=== PATIENT | male | born 1945 | race Caucasian/White ===

== ENCOUNTER → 2017-12-20 | Outpatient (CLI) | payer OTHER ==
--- NOTE | 2017-12-20 16:10 | DIAGNOSTIC IMAGING REPORT ---
CHEST 2 VIEWS ROUTINE CLINICAL HISTORY: 72 years-old Male presenting with PRE OP. TECHNIQUE: PA and lateral views of the chest were obtained. COMPARISON: None. FINDINGS: Atherosclerosis of the aortic arch. Cardiac silhouette normal in size. Prominent pericardial fat pad noted. Lungs and pleural spaces clear. Old fracture deformity of the anterior right seventh rib noted. Upper abdomen normal. IMPRESSION: 1. No acute cardiopulmonary disease. Electronically signed by: Damián Lopez M.D. 12/20/2017 4:09 PM Dictated Date/Time: 12/20/2017 4:08 PM
[2017-12-20 16:38] LABS: BASO % 0.6 %; BASO ABS # 0.04 K/uL (0-0.2); EOS % 2.7 %; EOS ABS # 0.17 K/uL (0-0.5); HEMATOCRIT 39.2 % (42-52); HEMOGLOBIN 12.9 g/dL (14.0-18.0); IG# 0.11 K/uL (0.00-0.02); LYMPH % 24.4 %; LYMPH ABS # 1.52 K/uL (1.2-3.4); MEAN CELL VOLUME 92.7 fL (80-100); MEAN CORPUSCULAR HEMOGLOBIN 30.5 pg (25-34); MEAN CORPUSCULAR HGB CONC 32.9 g/dl (32-36); MEAN PLATELET VOLUME 9.3 fL (7.4-10.4); MONO % 12.7 %; MONO ABS # 0.79 K/uL (0.11-0.59); NEUT % 57.8 %; NEUT ABS # 3.59 K/uL (1.4-6.5); PLATELET COUNT 313 K/uL (130-400); RED CELL DISTRIBUTION WIDTH CV 14.7 % (11.5-14.5); RED CELL DISTRIBUTION WIDTH SD 49.8 fL (36.4-46.3); WHITE BLOOD COUNT 6.22 K/uL (4.8-10.8)
[2017-12-20 16:46] LABS: PTT PATIENT 25.1 SECONDS (21.0-31.0)
[2017-12-20 17:09] LABS: BLOOD UREA NITROGEN 20 mg/dl (7-18); CALCIUM 8.3 mg/dl (8.5-10.1); CARBON DIOXIDE 28 mmol/L (21-32); CREATININE 1.53 mg/dl (0.60-1.40); GLUCOSE 99 mg/dl (70-99); POTASSIUM 4.1 mmol/L (3.5-5.1); SODIUM 144 mmol/L (136-145)
== END | disposition home or self-care (01) ==
LOC: C.CPL 15:29
PROVIDERS: ATTEND Orthopaedic Surgery
DX: Z01.812 Encounter for preprocedural laboratory examination (principal); Z01.810 Encounter for preprocedural cardiovascular examination; Z01.811 Encounter for preprocedural respiratory examination; I70.0 Atherosclerosis of aorta

== ENCOUNTER 2017-12-24 09:03 | Day surgery (SDC) | payer OTHER ==
[~2017-12-24] VITALS: Ht 172.7 cm; Wt 89.1 kg
[~2017-12-24 09:03] MED LIST: ADVIN25/60 INH; CALC-5 PO; CEFAZOLIN 1000MG IV PUSH 7.5 ML IV SCH; CEFAZOLIN 2000MG IV PUSH 15 ML IV SCH; CHOL1TAB42 PO; DILT-117 PO; FAMO20TA11 PO; LACTATED RINGER'S 1000ML 1,000 ML IV SCH; LISI20TA3 PO; SYN88 PO; VITACAP37 PO; VNTHFA/IN INH
[2017-12-24 09:45] VITALS: BP 120/99; PULSE 100; TEMP 36.5; O2SAT 96; Ht 172.7 cm; Wt 89.1 kg
[2017-12-24] MEDS ORDERED: EpINEphrine INJ 1MG/ML AMP 1 MG/ML AMP ONE (09:46)
[2017-12-24] MEDS ORDERED: BUPIVACAINE 0.5 % 5 MG/1 ML PF 10ML VIAL ONE ×2 (09:46→09:47)
[2017-12-24] MEDS ORDERED: DEXAMETHASONE SOD INJ 4 MG/ML VIAL ONE (09:46)
[2017-12-24] MEDS ORDERED: SODIUM CHLORIDE 0.9% INJ 10 ML VIAL ONE (09:47)
--- NOTE | 2017-12-24 10:18 | History & Physical Bridge Note ---
H&P Re-Evaluation Bridge Note: I have examined the patient, reviewed the History & Physical and in the interval since the performance of the History & Physical I have noted the following changes of clinical significance: No changes noted
--- NOTE | 2017-12-24 10:52 | History and Physical ---
History & Physical Date December 24, 2017. Chief Complaint Right shoulder pain History of Present Illness The patient is a 72 year old male with complaints of right shoulder pain for several years which has gradually worsened. no acute injuries that he can recall , but pain gradually worsening, worse with overhead activities and lifting away from his body, pain occasionally wakes him at night, no relief with rest/ice. pain worst is 8/10, now pain with ADLs. MRI showing advanced DJD AC joint as well as high grade partial tear of rotator cuff. Past Medical/Surgical History kidney stones removed left index & middle finger amputations GERD Obesity Hypertension Allergies Uncoded Allergies: PENTATHOL (Allergy, Unknown, hives, 12/23/17) Home Medications Scheduled Calcium-Magnesium W/ Vitamin D (Calcium 500), 1 TAB PO QAM Cholecalciferol (Vitamin D), 1 TAB PO QAM Diltiazem Hcl Ext Rel (Tiazac), 300 MG PO QAM Famotidine (Pepcid), 20 MG PO QAM Fluticasone Prop/Salmeterol (Advair Diskus 250/50 60 Dose), 2 PUFFS INH BID Levothyroxine Sodium (Synthroid), 1 TAB PO QAM Lisinopril (Prinivil), 20 MG PO QAM Vitamin E (E-400), 1 TAB PO QAM Scheduled PRN Albuterol Hfa (Ventolin Hfa), 2-4 PUFFS INH Q6H PRN for Shortness of Breath Physical Examination Skin: warm/dry, no rash Eyes: normal inspection, EOMI, sclerae normal ENT: normal ENT inspection, pharynx normal Head: normocephalic, atraumatic Neck: supple, no adenopathy, trachea midline Respiratory/Chest: lungs clear, normal breath sounds, no respiratory distress Cardiovascular: regular rate, rhythm, no edema, no murmur Addiitonal Comments: Right shoulder: active ROM : FFlexion 160 degrees, ABDUCTION 150 degrees, internal rotation to L5, strength 4/5 with resisted FF and ER. Positive Hawkin and Neer impingment. NVDI, Radial pulse +2. positive empty can test, negative drop arm MRI right shoulder showing Advanced DJD AC joint with near full thickness tear supraspinatus Diagnosis right shoulder AC joint DJD and rotator cuff tear Plan of Treatment after further discussion, patient would like to proceed with right shoulder arthroscopy, subacromial decompression, excision distal clavicle, rotator cuff repair at [facility]. will plan on OPPT PT starting POD #2, percocet for post-op pain management.
[2017-12-24] MEDS ORDERED: FENTANYL CITRATE INJ 50 MCG/1 ML 2 ML VIAL ONE ×3 (12:00→14:11)
[2017-12-24] MEDS ORDERED: EpINEphrine HCL INJ 1 MG/ML 1ML SYRINGE ONE (12:38)
[2017-12-24] MEDS ORDERED: SODIUM CHLORIDE 0.9% 1000ML 1,000 ML IV SCH (13:05)
[2017-12-24] MEDS ORDERED: OXYC-57 PO (13:07)
[2017-12-24] MEDS ORDERED: OXYCODONE/ACETAMINOPHEN 5-325 TAB PO PRN ×2 (13:15)
[2017-12-24] MEDS ORDERED: ONDANSETRON INJ 2 MG/ML 2 ML VIAL IV PRN ×2 (13:15→14:45)
[2017-12-24] MEDS ORDERED: PROPOFOL IV EMULSION 10 MG/ML 20 ML VIAL ONE ×2 (13:24→13:46)
[2017-12-24] MEDS ORDERED: ONDANSETRON INJ 2 MG/ML 2 ML VIAL ONE (13:24)
[2017-12-24] MEDS ORDERED: PHENYLEPHRINE 100MCG/ML 5ML SYR ONE (13:24)
[2017-12-24] MEDS ORDERED: SUCCINYLCHOLINE CHLORIDE 20 MG/ML 10 ML VIAL IV ONE (13:24)
--- NOTE | 2017-12-24 14:06 | [facility] Post Operative Brief Note ---
Immediate Operative Summary Operative Date December 24, 2017. Pre-Operative Diagnosis right shoulder acromioclavicular joint Degenerative Joint Disease and rotator cuff tear Post-Operative Diagnosis Right shoulder acromioclavicular joint Degenerative Joint Disease and rotator cuff tear Procedure(s) Performed Right Shoulder Arthroscopic Subacromial Decompression, Distal Clavicle Excision, with Rotator Cuff Repair utilizing double row repair 4.5 helical L4 0.[address] Olivas Cooker Casing Surgeon(s) Arjun Carty PA-C Estimated Blood Loss 3 cc Findings Consistent with Post-Op Diagnosis Specimens none per surgeon Drains None Anesthesia Type General Regional Complication(s) none Disposition Disposition: Recovery Room / PACU Overlapping Procedure I was present for: the critical portions of procedure. I was immediately available: during the entire case Back up surgeon: was not required during procedure
--- NOTE | 2017-12-24 14:10 | [facility] Operative Report ---
Operative Report Operative Date December 24, 2017. Pre-Operative Diagnosis right shoulder acromioclavicular joint Degenerative Joint Disease and rotator cuff tear Post-Operative Diagnosis Right shoulder acromioclavicular joint Degenerative Joint Disease and rotator cuff tear Procedure(s) Performed Right Shoulder Arthroscopic Subacromial Decompression, Distal Clavicle Excision, with Rotator Cuff Repair utilizing double row repair 4.5 helical L4 0.[address] Olivas Career Services Director Surgeon(s) Arjun Carty PA-C Estimated Blood Loss 3 cc Findings Patient presents with a full-thickness tear rotator cuff no response to conservative management with physical therapy anti-inflammatories relative rest activity modification as profound weakness to abduction weakness with supraspinatus on manual motor testing time surgery there is evidence of full- thickness cuff tear AC joint DJD impingement syndrome as verified with MRI and x -rays preoperatively. Specimens none per surgeon Drains None Anesthesia Type General Regional Complication(s) none Disposition Recovery Room / PACU Indications Patient presents with a full-thickness rotator cuff tear right shoulder failed attempts at conservative management patient is acute on chronic rotator cuff tear with profound weakness of the supinators tendon times Surgeon evidence of a 3 x 3 cm tear involving supinators tendon with retraction of the tendon the there is also to be evidence of marketed AC joint DJD with large anterior type III acromion which is all debrided. Description of Procedure After proper primary draping the right shoulder region a standard posterior shoulder or scopic portals placed on scopic examination beginning region of the glenohumeral joint revealed the biceps tendon to be intact as noted evidence of large a full-thickness tear of supraspinatus tendon with retraction of the anterior subscapularis is noted be intact labrum had some mild fraying which was debrided to stable margin subacromial space was decompressed bursectomy was performed anterior-inferior acromioplasty was performed converting a type III to type I the distal 10 mm of clavicle was excised under direct visualization socially rotator cuff after having been mobilized was repaired for repair back to bony bed of bony bed was prepared subsequently 4.5 double loaded helical was placed the rotator cuff was advanced back to the bone and repaired a second footprint anchor 4.5 he footprint anchor was used the rotator cuff repair was complete and back to bone performed a complete thorough subacromial decompression acromioplasty distal clavicle excision on particular matter debris was removed skin portals are closed with 4-0 nylon please note Arjun ALEGRIA was necessary for prepping draping traction suture management wound closure was necessary for the case I attest to the content of the Intraoperative Record and any orders documented therein. Any exceptions are noted below.
--- NOTE | 2017-12-24 14:14 | Discharge Instructions ---
Discharge Instructions Date of Service December 24, 2017. Visit Reason for Visit: Right Shoulder Impingement Syndrome, Osteoarthriti Discharge Discharge Diagnosis / Problem: right shoulder excision distal clavicle and rotator cuff repair Discharge Goals Goal(s): Decrease discomfort, Improve function, Increase independence Activity Recommendations Activity Limitations: as noted below Anesthesia . Post Anesthesia Instructions: If you have had General Anesthesia or IV Sedation: * Do not drive today. * Resume driving when surgeon permits. * Do not make important decisions or sign legal documents today. * Call surgeon for: 1. Temperature elevations greater than 101 degrees F. 2. Uncontrollable pain. 3. Excessive bleeding. 4. Persistent nausea and vomiting. 5. Medication intolerance (nausea, vomiting or rash). * For nausea and vomiting use only clear liquids such as: tea, soda, bouillon until nausea subsides, then gradually increase diet as tolerated. * If you have any concerns or questions, call your surgeon's office. If physician is unavailable and it is an emergency, call 911 or go to the nearest emergency room. . Instructions / Follow-Up Instructions / [place] [facility] [place]: ROTATOR CUFF REPAIR SELF CARE INSTRUCTIONS A. You are permitted to loosen your sling/immobilizer to move your elbow, wrist , and hand to prevent stiffness. You should use your well arm (good arm) to assist the operated extremity when trying to raise the arm away from the body, hygiene purposes. Do NOT actively try to use/engage your shoulder muscles in operative arm at this time. You should NOT do overhead activity, lifting, or attempt to reach behind your back. B. You may/may not be instructed to start Physical Therapy upon discharge depending upon the size and difficulty of the repair. You will be provided a prescription for therapy with specific restrictions, if needed, at time of discharge. C. At 48 hours post-operatively, you may change your dressing. (Leave white steri-strips intact if present). Use band-aids and change daily. You are allowed to shower at this time and get the incision area wet, but DO NOT soak or submerge incision area in water. (No baths, swimming pools, hot tubs) D. Do NOT apply soap or any ointment/lotions directly over incision. E. You may use ice as needed to operative shoulder SPECIAL CARE INSTRUCTIONS: VERY IMPORTANT TO READ AND REVIEW A. There are a few signs you need to watch for after you are home. Call [facility] at [phone] if you experience any of the following: a. Increased severe shoulder pain. Some pain is expected especially when you exercise b. Increased swelling in your shoulder or arm; pain or swelling in either upper extremity. (Note: swelling and stiffness is normal and expected for several weeks post op, depending on type of shoulder surgery you had). c. Any fluid or drainage from the incision; redness of the incision. d. Shortness of breath or chest pain. B. Please call [facility] at [phone] if you have any questions or concerns about your operation or recovery. C. Call your physician if: a. Temperature is greater than 101 degrees (F). b. Pain is not relieved by prescribed pain medications. c. Increase drainage or redness from incision. d. Unanswered questions or concerns. D. Pain Medication: a. You will be prescribed pain medication upon discharge that should last till your first post-operative appointment. b. If you experience nausea and/or skin rash, discontinue this medication and contact our office for an alternative medication. c. Caution- narcotic pain medication can cause constipation. FOLLOW UP VISIT: Please call [facility] at [phone] to schedule a follow up appointment 10-14 days from your surgery date. Diet Recommendations Recommended Home Diet: resume previous diet Procedures Procedures Performed: Right Shoulder Arthroscopic Subacromial Decompression, Distal Clavicle Excision, with Rotator Cuff Repair utilizing double row repair 4.5 helical L4 0.5 footprint anchor Pending Studies Studies pending at discharge: no Medical Emergencies . Who to Call and When: Medical Emergencies: If at any time you feel your situation is an emergency, please call 911 immediately. . Non-Emergent Contact Non-Emergency issues call your: Primary Care Provider, Surgeon . . "Provider Documentation" section prepared by Arjun Carty. . [place] Drug Monitoring Program Search Results: patient reviewed within database, no issues identified
[2017-12-24] MEDS ORDERED: ATROPINE SULFATE 0.1 MG/ML 5ML SYR IV PRN (14:45)
[2017-12-24] MEDS ORDERED: EpHEDrine SULFATE INJ 50 MG/ML AMP IV PRN (14:45)
[2017-12-24] MEDS ORDERED: FENTANYL CITRATE INJ 50 MCG/1 ML 2 ML VIAL IV PRN (14:45)
[2017-12-24 15:18] VITALS: PULSE 80; O2SAT 98
[2017-12-24] MEDS ORDERED: ALBUT/IPRATROP 3MG/0.5MG NEB 3 ML VIAL INH ONE (15:30)
[2017-12-24] MEDS ORDERED: NURSING VERBAL MED ORDER ONE (15:30)
[2017-12-24 15:35] VITALS: BP 114/64; PULSE 85; TEMP 36.8; O2SAT 91
[2017-12-24 16:05] VITALS: BP 135/64; PULSE 85; TEMP 36.6; O2SAT 91
== END 2017-12-24 16:30 | disposition home or self-care (01) ==
LOC: C.ACU 09:03
PROVIDERS: ATTEND Orthopaedic Surgery
DX: M75.101 Unspecified rotator cuff tear or rupture of right shoulder, not specified as traumatic (principal); M19.011 Primary osteoarthritis, right shoulder; K21.9 Gastro-esophageal reflux disease without esophagitis; E66.9 Obesity, unspecified; I10 Essential (primary) hypertension; Z87.442 Personal history of urinary calculi; Z89.022 Acquired absence of left finger(s); J44.9 Chronic obstructive pulmonary disease, unspecified; Z88.8 Allergy status to other drugs, medicaments and biological substances